=== PATIENT | female | born 1945 | race Caucasian/White ===

== ENCOUNTER 2019-10-05 20:52 | Emergency (ER) | payer MEDICARE ==
[~2019-10-05] VITALS: Ht 162.6 cm; Wt 81.7 kg
[~2019-10-05 20:52] MED LIST: ACET500 PO; CARV3.125 PO; CHOL10002 PO; CLIN300 PO; FURO40 PO; HYDRA25 PO; LIVALO4 MG PO; LOSA50 PO; MAGNESIUM PO; POTCHL10ER PO; PROBIOTIC1 EAC1 PO; Red Yeast Rice600 MG PO; SULTRIDS PO; VANCOMYCIN1.25 GM/25 IV; VERA240ER PO
[2019-10-05] MEDS ORDERED: CALAN SR240 MG PO (23:09)
== END 2019-10-05 23:24 | disposition home or self-care (01) ==
LOC: ER 20:52
DX: S00.03XA Contusion of scalp, initial encounter (principal); I10 Essential (primary) hypertension; G47.33 Obstructive sleep apnea (adult) (pediatric); Z88.8 Allergy status to other drugs, medicaments and biological substances; Z91.048 Other nonmedicinal substance allergy status; Z79.899 Other long term (current) drug therapy; W01.0XXA Fall on same level from slipping, tripping and stumbling without subsequent striking against object, initial encounter
CPT/HCPCS: 70450; 72125; 99283-25

== ENCOUNTER → 2020-07-25 | Outpatient (CLI) | payer MEDICARE ==
[~2020-07-25] MED LIST changes: +CALAN SR240 MG PO
== END | disposition home or self-care (01) ==
LOC: LAB SHORT 08:46 → PLD 08:46
DX: L57.0 Actinic keratosis (principal)
CPT/HCPCS: 88305

== ENCOUNTER 2021-03-16 09:02 | Day surgery (SDC) | payer MEDICARE ==
[~2021-03-16] VITALS: Ht 160 cm; Wt 89.0 kg
[2021-03-16] MEDS ORDERED: CHLO25A (09:30)
[2021-03-16] MEDS ORDERED: HYDRA50 (09:31)
--- NOTE | 2021-03-16 09:35 | NUR ---
03/16/21 0935 Rupa Portillo PREOP CHARTING DONE BY SALMA ROOT RN GTT PLACED IN 0918 PLEDGETT PLACED IN AT 0920
== END 2021-03-16 10:42 | disposition home or self-care (01) ==
LOC: ORSCSDS 09:02
PROVIDERS: Ophthalmology
PROC: 08RK3JZ Replacement of Left Lens with Synthetic Substitute, Percutaneous Approach (ICD-10-PCS; principal; 2021-03-16 10:30)
DX: H25.11 Age-related nuclear cataract, right eye (principal); I10 Essential (primary) hypertension
CPT/HCPCS: J2001; J2250; J3010; J3301; J7040; V2632

== ENCOUNTER 2021-04-06 08:23 | Day surgery (SDC) | payer MEDICARE ==
[~2021-04-06] VITALS: Ht 160 cm; Wt 88.2 kg
[~2021-04-06 08:23] MED LIST changes: +CHLO25A; +HYDRA50
[2021-04-06] MEDS ORDERED: FURO20 (09:04)
--- NOTE | 2021-04-06 09:13 | NUR ---
04/06/21 0913 Keeley Serrano CALL LIGHT WITHIN REACH. BLOOD DRAWN PRE-OP DUE TO LOW POTASSIUM LEVEL. AWARE OF PT'S HIGH BLOOD PREASSURE. OK TO PROCEED WITH PROCEDURE.
== END 2021-04-06 10:29 | disposition home or self-care (01) ==
LOC: ORSCSDS 08:23
PROVIDERS: Ophthalmology
PROC: 08RK3JZ Replacement of Left Lens with Synthetic Substitute, Percutaneous Approach (ICD-10-PCS; principal; 2021-04-06 09:45)
DX: H25.12 Age-related nuclear cataract, left eye (principal); I10 Essential (primary) hypertension; E78.5 Hyperlipidemia, unspecified; G47.33 Obstructive sleep apnea (adult) (pediatric); Z79.899 Other long term (current) drug therapy; E66.9 Obesity, unspecified; Z68.34 Body mass index [BMI] 34.0-34.9, adult
CPT/HCPCS: 84132; J2001; J2250; J3301; J7040; V2632

== ENCOUNTER 2021-09-29 08:13 | Day surgery (SDC) | payer MEDICARE ==
[~2021-09-29] VITALS: Ht 160 cm; Wt 86.0 kg
[~2021-09-29 08:13] MED LIST changes: +FURO20
[2021-09-29] MEDS ORDERED: Voltaren100 GM (08:55)
--- NOTE | 2021-09-29 09:02 | NUR ---
09/29/21 0902 Quyen Rojas BLOOD DRAW FROM IV START FOR PRP. PATIENT TOLERATED THIS FINE, NO COMPLAINTS OR PROBLEMS
--- NOTE | 2021-09-29 12:47 | NUR ---
09/29/21 1247 MAMIE SALAZAR SPOKE WITH DR TONY ABOUT BP AND HR OK TO DC
== END 2021-09-29 12:38 | disposition home or self-care (01) ==
LOC: ORSCSDS 08:13
PROVIDERS: Orthopaedic Surgery
PROC: 0LQL0ZZ Repair Right Upper Leg Tendon, Open Approach (ICD-10-PCS; principal; 2021-09-29 09:30)
DX: S76.011A Strain of muscle, fascia and tendon of right hip, initial encounter (principal); I10 Essential (primary) hypertension; G47.33 Obstructive sleep apnea (adult) (pediatric); E11.9 Type 2 diabetes mellitus without complications; E66.9 Obesity, unspecified; Z68.33 Body mass index [BMI] 33.0-33.9, adult; Z79.899 Other long term (current) drug therapy
CPT/HCPCS: C1713; J0171; J0690; J1100; J1885; J2250; J2370; J2405; J2704; J2710; J3010; J7120

== ENCOUNTER 2022-06-19 09:04 | Emergency (ER) | payer MEDICARE ==
[~2022-06-19] VITALS: Ht 160 cm; Wt 81.7 kg
[~2022-06-19 09:04] MED LIST changes: +Voltaren100 GM
[2022-06-19] MEDS ORDERED: HYDRA50 PO (09:45)
[2022-06-19 09:52] LABS: BASOPHILS ABSOLUTE AUTO 0.04 K/mm3 (0.00-0.23); BASOPHILS PERCENT AUTO 1 % (0-2); EOSINOPHILS ABSOLUTE AUTO 0.21 K/mm3 (0.00-0.68); EOSINOPHILS PERCENT AUTO 4 % (0-6); Hematocrit 44.2 % (33.0-51.0); Hemoglobin 14.8 g/dL (11.5-16.0); IMMATURE GRAN ABSOLUTE AUTO 0.02 K/mm3 (0.00-0.10); IMMATURE GRAN PERCENT AUTO 0 % (0-1); LYMPHOCYTES ABSOLUTE AUTO 1.85 K/mm3 (0.84-5.20); LYMPHOCYTES PERCENT AUTO 32 % (21-46); MONOCYTES ABSOLUTE AUTO 0.41 K/mm3 (0.16-1.47); MONOCYTES PERCENT AUTO 7 % (4-13); Mean Corpuscular HGB 29.2 pg (26.0-34.0); Mean Corpuscular HGB Conc 33.5 g/dL (31.5-36.5); Mean Corpuscular Volume 87 fL (80-100); Mean Platelet Volume 10.8 fL (9.1-12.4); NEUTROPHILS ABSOLUTE AUTO 3.19 K/mm3 (1.96-9.15); NEUTROPHILS PERCENT AUTO 56 % (41-73); Platelet Count 214 K/mm3 (150-400); RDW Coefficient Variation 14.6 % (11.7-14.2); RDW Standard Deviation 46.6 fL (35.1-46.3); Red Blood Cell Count 5.07 M/mm3 (3.80-5.20); White Blood Cell Count 5.72 K/mm3 (4.00-11.30)
[2022-06-19 10:11] LABS: Albumin, Blood 4.3 g/dL (3.4-5.0); Albumin/Globulin Ratio 1.5 (0.8-1.8); Bilirubin, Total 0.7 mg/dL (0.1-1.0); Bun/Creatinine Ratio 30.1 (12.0-20.0); Calcium, Blood 9.2 mg/dL (8.5-10.1); Creatinine, Blood 0.77 mg/dL (0.40-1.00); Globulin, Blood 2.8 g/dL (2.2-4.0); Magnesium, Blood 2.4 mg/dL (1.6-2.4); Potassium, Blood 3.5 mmol/L (3.5-5.5); Total Protein, Blood 7.1 g/dL (6.4-8.2)
[2022-06-19] MEDS ORDERED: LOSA50 PO ×2 (12:01→12:37)
== END 2022-06-19 12:38 | disposition home or self-care (01) ==
LOC: ER 09:04
PROVIDERS: Student in an Organized Health Care Education/Training Program
DX: I10 Essential (primary) hypertension (principal); R07.89 Other chest pain; Z88.8 Allergy status to other drugs, medicaments and biological substances; Z79.899 Other long term (current) drug therapy
CPT/HCPCS: 71046; 80053; 83735; 83880; 84484; 85025; 93005; 93010; A9270

== ENCOUNTER → 2025-03-24 | Outpatient (CLI) | payer MEDICARE ==
[~2025-03-24] MED LIST changes: +HYDRA50 PO
== END ==
LOC: LAB SHORT 13:23 → LAB 13:23
DX: N39.0 Urinary tract infection, site not specified (principal)
CPT/HCPCS: 87086